=== PATIENT | male | born 1965 | race Caucasian/White ===

== ENCOUNTER 2020-04-29 05:33 | Inpatient (IN) | payer BC ==
[2020-04-29] VITALS (8 sets, daily range): BP systolic 96–120; BP diastolic 26–79
[~2020-04-29] VITALS: Ht 175.3 cm; Wt 90.7 kg
[2020-04-29] MEDS ORDERED: APIX5TAB PO (07:32)
[2020-04-29] MEDS ORDERED: LOPHC2 MT (07:32)
[2020-04-29] MEDS ORDERED: FLEC150T2 PO (07:32)
[2020-04-29] MEDS ORDERED: HEPARIN 1,000 UNITS PREMIX 1,500 ML IV ONE (07:42)
[2020-04-29 07:46] LABS: BASOPHILS % 0.5 % (0.0-2.0); EOSINOPHILS % 1.8 % (0.0-5.0); HEMATOCRIT. 45.6 % (42.0-52.0); HEMOGLOBIN. 15.9 g/dL (14.0-18.0); LYMPHOCYTES % 30.1 % (20.0-50.0); MEAN CORPUSCULAR HEMOGLOBIN 32.3 pg (28.0-32.0); MEAN CORPUSCULAR VOLUME 92.9 fL (80.0-94.0); MEAN PLATELET VOLUME 6.7 fl (7.4-10.4); MONOCYTES % 5.7 % (2.0-8.0); NEUTROPHILS % 61.9 % (40.0-76.0); PLATELET 233 x1000/uL (130-400); RED BLOOD CELL COUNT 4.91 mill/uL (4.7-6.1); RED CELL DISTRIBUTION WIDTH 13.1 % (11.6-14.6)
[2020-04-29 07:52] LABS: CHLORIDE 108 mEq/L (98-107)
[2020-04-29] MEDS ORDERED: LIDOCAINE HCL 1% 20ML VIAL (Pyxis) INJ ONE (09:05)
[2020-04-29] MEDS ORDERED: CLINDAMYCIN 900 MG PREMIX 50 ML IV ONE (09:30)
[2020-04-29] MEDS ORDERED: CLINDAMYCIN 900 MG in DEXTROSE 5% WATER 50 ML IV NR (09:30)
[2020-04-29] MEDS ORDERED: HEPARIN SODIUM 1,000 UNIT/1ML VIAL IV ONE (10:00)
[2020-04-29] MEDS ORDERED: PANTOPRAZOLE SODIUM 40 MG/VIAL IV NR (12:30)
[2020-04-29] MEDS ORDERED: ACETAMINOPHEN 325MG TABLET PO PRN (14:00)
[2020-04-29] MEDS ORDERED: ONDANSETRON HCL 4MG/2ML INJ IV PRN (14:45)
[2020-04-29] MEDS ORDERED: MEPERIDINE HCL/PF 25MG/ML CPJ IV PRN (14:45)
[2020-04-29] MEDS ORDERED: FENTANYL CITRATE/PF 50MCG/ML 2ML VIAL IV PRN (14:45)
[2020-04-29 17:48] LABS: INR 1.1; PARTIAL THROMBOPLASTIN TIME 25.5 sec (23.4-31.0); PROTHROMBIN TIME 11.2 sec (9.6-11.0)
[2020-04-29] MEDS: APIXABAN 5 MG TABLET PO SCH (22:08)
[2020-04-30] VITALS (9 sets, daily range): BP systolic 89–113; BP diastolic 49–67
[2020-04-30 07:22] LABS: BASOPHILS % 0.3 % (0.0-2.0); EOSINOPHILS % 0.6 % (0.0-5.0); HEMATOCRIT. 41.7 % (42.0-52.0); HEMOGLOBIN. 14.8 g/dL (14.0-18.0); MEAN CORPUSCULAR HEMOGLOBIN 33.1 pg (28.0-32.0); MEAN CORPUSCULAR VOLUME 93.4 fL (80.0-94.0); MEAN PLATELET VOLUME 7.1 fl (7.4-10.4); MONOCYTES % 6.8 % (2.0-8.0); NEUTROPHILS % 73.3 % (40.0-76.0); PLATELET 250 x1000/uL (130-400); RED BLOOD CELL COUNT 4.46 mill/uL (4.7-6.1); RED CELL DISTRIBUTION WIDTH 13.2 % (11.6-14.6)
[2020-04-30 08:06] LABS: CHLORIDE 107 mEq/L (98-107)
[2020-04-30] MEDS ORDERED: APIX5TAB PO (08:27)
[2020-04-30] MEDS: APIXABAN 5 MG TABLET PO SCH (08:31)
== END 2020-04-30 09:37 | disposition home or self-care (01) | DRG 229 ==
LOC: EEVIPCON 05:33 → CCL 05:33 → 3WST 05:34
PROVIDERS: ADMIT Internal Medicine Clinical Cardiac Electrophysiology; ATTEND Internal Medicine Clinical Cardiac Electrophysiology
PROC: 02584ZZ Destruction of Conduction Mechanism, Percutaneous Endoscopic Approach (ICD-10-PCS; principal; 2020-04-30)
PROC: 02583ZZ Destruction of Conduction Mechanism, Percutaneous Approach (ICD-10-PCS; 2020-04-30)
PROC: 4A023FZ Measurement of Cardiac Rhythm, Percutaneous Approach (ICD-10-PCS; 2020-04-30)
PROC: 4A0234Z Measurement of Cardiac Electrical Activity, Percutaneous Approach (ICD-10-PCS; 2020-04-30)
DX: I48.0 Paroxysmal atrial fibrillation (principal); I49.5 Sick sinus syndrome; Z95.0 Presence of cardiac pacemaker
CPT/HCPCS: 36415; 80048; 85025; 85347; 93005; 93613; 93621; 93656; 93662; C1731; C1732; C1759; C1893; C9113; J1644; J2405; J3490; J7060